=== PATIENT | male | born 1955 | race Native Hawaiian/Other Pacific Islander ===

== ENCOUNTER 2019-01-31 14:50 | Outpatient (CLI) | payer OTHER | END 2019-01-31 20:22 | disposition home or self-care (01) | LOC: RAD 14:50 | DX: M79.671 Pain in right foot (principal) ==

== ENCOUNTER 2022-02-17 13:28 | Outpatient (CLI) | payer OTHER | END 2022-02-17 23:12 | disposition home or self-care (01) | LOC: RAD 13:28 | PROVIDERS: ATTEND Registered Nurse | DX: M54.12 Radiculopathy, cervical region (principal) ==

== ENCOUNTER 2022-03-29 18:54 | Emergency (ER) | payer OTHER ==
[~2022-03-29] VITALS: Ht 172.7 cm; Wt 74.8 kg
[2022-03-29 20:09] LABS: PLATELET COUNT 221 K/uL (142-355)
[2022-03-29 20:19] LABS: POTASSIUM 3.4 mmol/L (3.6-5.2)
[2022-03-29 21:18] VITALS: BP 140/76; TEMP 98.6
== END 2022-03-29 21:18 | disposition home or self-care (01) ==
LOC: ED 18:54
PROVIDERS: Emergency Medicine
DX: N39.0 Urinary tract infection, site not specified (principal); E87.1 Hypo-osmolality and hyponatremia
CPT/HCPCS: 36415; 80048; 81000; 85027; 96360; 99284

== ENCOUNTER 2022-04-04 14:58 | Outpatient (CLI) | payer OTHER | END 2022-04-04 20:27 | disposition home or self-care (01) | LOC: CT 14:58 | PROVIDERS: ATTEND Registered Nurse | DX: R30.0 Dysuria (principal); N32.89 Other specified disorders of bladder ==

== ENCOUNTER 2022-11-28 08:40 | Outpatient (CLI) | payer OTHER | END 2022-11-28 19:05 | disposition home or self-care (01) | LOC: LABW 08:40 | PROVIDERS: ATTEND Optometrist | DX: H53.122 Transient visual loss, left eye (principal) | CPT/HCPCS: 36415; 85652; 86140 ==